=== PATIENT | female | born 1955 | race Caucasian/White ===

== ENCOUNTER → 2021-07-03 | Outpatient (CLI) | payer BC ==
[~2021-07-03] MED LIST: ADULT LOW DOSE81 MG PO; BYETTA PEN 11 PENINJ SC; FLAGYL500 MG PO; GLIPIZIDE ER5 MG PO; IBUPROFEN 800800 MG PO; KEFLEX500 MG PO; LANTUS SC; LORTAB 5 MG/5001 TAB PO; METFORMIN 500500 MG PO; NORCO 5-325 TA1 EACH PO; PROTONIX40 M2 PO
== END ==
LOC: M.LAB 11:03
PROVIDERS: ATTEND Orthopaedic Surgery
DX: Z01.812 Encounter for preprocedural laboratory examination (principal); Z20.822 Contact with and (suspected) exposure to COVID-19